=== PATIENT | male | born 1980 | race Two or more races ===

== ENCOUNTER 2018-09-01 03:45 | Emergency (ER) | payer SELFPAY ==
[~2018-09-01] VITALS: Ht 185.4 cm; Wt 90.7 kg
[2018-09-01 03:48] VITALS: BP 143/85
[2018-09-01] MEDS ORDERED: BENZOCAINE (DENTAL) 20 % SPRAY 60ML MT ONE ×2 (04:47→05:00)
[2018-09-01] MEDS ORDERED: methylPREDNISolone SOD SUCC 125 MG/2 ML VL ONE (04:54)
[2018-09-01] MEDS ORDERED: cefTRIAXone SOD 1,000 MG VL ONE (04:55)
[2018-09-01] MEDS ORDERED: LIDOCAINE 1% HCL (LOCAL ANESTH.) INJ 20ML MDV ONE (04:57)
[2018-09-01] MEDS ORDERED: cefTRIAXone SOD 1,000 MG VL IM ONE (05:00)
[2018-09-01] MEDS ORDERED: methylPREDNISolone SOD SUCC 125 MG/2 ML VL IM ONE (05:00)
== END 2018-09-01 05:20 | disposition home or self-care (01) ==
LOC: ER 03:47
DX: J40 Bronchitis, not specified as acute or chronic (principal); J02.9 Acute pharyngitis, unspecified; B34.9 Viral infection, unspecified
CPT/HCPCS: 71046; 96372; 99283; J0696; J2001; J2930

== ENCOUNTER 2019-05-22 23:54 | Emergency (ER) | payer MEDICAID ==
[~2019-05-22] VITALS: Ht 185.4 cm; Wt 89.4 kg
[2019-05-23 00:18] LABS: Basophils # (auto) 0.1 uL; Basophils % (auto) 0.7 % (0.0-2.0); Eosinophils # (auto) 0.1 uL; Hematocrit 45.2 % (41.0-53.0); Hemoglobin 15.8 g/dL (13.5-17.5); Lymphocytes # (auto) 2.3 uL; Lymphocytes % (auto) 27.2 % (10.0-50.0); Mean Corpuscular Hemoglobin 30.2 pg (28.0-32.0); Mean Corpuscular Hgb Conc. 34.9 g/dL (32.0-36.0); Mean Corpuscular Volume 86.6 fL (80.0-100.0); Monocytes # (auto) 0.6 uL; Monocytes % (auto) 7.6 % (0.0-12.0); Neutrophils # (auto) 5.3 uL; Neutrophils % (auto) 63.5 % (37.0-80.0); Platelet Count (auto) 176 10^3/uL (140-450); Red Blood Cells 5.22 10^6/uL (4.5-5.90); Red Cell Distribution Width 13.7 % (11.8-14.3); White Blood Cell 8.3 10^3/uL (4.4-10.8)
[2019-05-23 00:37] LABS: Alanine Aminotransferase 148 U/L (16-61); Albumin 4.5 g/dL (3.4-5.0); Anion Gap 6 (5-15); Aspartate Aminotransferase 54 U/L (15-37); Blood Urea Nitrogen 31 mg/dL (7-18); Calcium 8.6 mg/dL (8.5-10.1); Carbon Dioxide 28 mmol/L (21-32); Chloride 107 mmol/L (98-107); GFR African American 92 mL/min; GFR Non-African American 76 mL/min; Glucose 121 mg/dL (74-106); Magnesium 2.4 mg/dL (1.6-2.6); Potassium 3.6 mmol/L (3.5-5.1); Sodium 141 mmol/L (136-145)
[2019-05-23 00:42] LABS: Alkaline Phosphatase 70 U/L (45-117); Bilirubin, Total 0.6 mg/dL (0.2-1.0); Total Protein 7.6 g/dL (6.4-8.2)
[2019-05-23] MEDS ORDERED: KETOROLAC TROMETH 30 MG/ML 1ML VIAL IV ONE (07:45)
[2019-05-23] MEDS ORDERED: METOCLOPRAMIDE HCL 5MG/ml INJ 2ml VIAL IV ONE (07:45)
[2019-05-23 08:31] LABS: Urine Bacteria NONE SEEN /hpf (None Seen); Urine Blood Negative /uL (Negative); Urine Mucus FEW (None Seen); Urine Specific Gravity 1.032 (1.001-1.035); Urine WBC <1 /hpf (0 - 3)
[2019-05-23 08:45] VITALS: BP 120/69
[2019-05-23 08:55] LABS: Alcohol, Urine < 3.0 mg/dL (0-5); Amphetamine Screen, Urine NEGATIVE (NEGATIVE); Barbiturate Scree,Urine NEGATIVE (NEGATIVE); Benzodiazephine Screen, Urine NEGATIVE (NEGATIVE); Cannabinoid Screen, Urine NEGATIVE (NEGATIVE); Cocaine Screen, Urine NEGATIVE (NEGATIVE); Opiate Scree,Urine NEGATIVE (NEGATIVE); Phencyclidine Screen, Urine NEGATIVE (NEGATIVE)
== END 2019-05-23 09:04 | disposition home or self-care (01) ==
LOC: ER 05-23
DX: R07.89 Other chest pain (principal); M25.512 Pain in left shoulder; R74.8 Abnormal levels of other serum enzymes
CPT/HCPCS: 36415; 71046; 80053; 80307; 81001; 83735; 84484; 85025; 93005; 96374; 96375; 99283; J1885; J2765